=== PATIENT | female | born 1990 | race Caucasian/White ===

== ENCOUNTER 2019-09-26 16:50 | Inpatient (IN) | payer BC ==
[~2019-09-26] VITALS: Ht 157.5 cm; Wt 74.4 kg
[2019-09-26] MEDS: LR 1,000 ML IV SCH (21:30)
[2019-09-26] MEDS ORDERED: OXYTOCIN/0.9 % SODIUM CHLORIDE 1,000 ML IV SCH (21:36)
[2019-09-26] MEDS ORDERED: LR 1,000 ML IV ONE (21:36)
[2019-09-26] MEDS ORDERED: AMPICILLIN SODIUM 1 GM in NS 50 ML IV SCH (21:45)
[2019-09-26] MEDS ORDERED: TERBUTALINE SULFATE 1 MG/ML VIAL SUBCUT ONE (21:45)
[2019-09-26] MEDS ORDERED: AMPICILLIN SODIUM 2 GM in NS 100 ML IV ONE (21:45)
[2019-09-26 21:52] LABS: BASOPHILS % (AUTO) 0.3 % (0.0-2.0); EOSINOPHILS % (AUTO) 0.6 % (0.0-4.0); HEMATOCRIT 30.9 % (36-48); HEMOGLOBIN 10.5 g/dL (12.0-16.0); LYMPHOCYTES # (AUTO) 2.5 K/uL (1.0-5.5); LYMPHOCYTES % (AUTO) 30.6 % (20.5-51.5); MEAN CORPUSCULAR HEMOGLOBIN 30 pg (27-31); MEAN CORPUSCULAR HGB CONC 34 % (32-36); MEAN CORPUSCULAR VOLUME 90 fL (79.0-98.0); MONOCYTES # (AUTO) 0.8 K/uL (0.0-1.0); MONOCYTES % (AUTO) 10.3 % (1.7-9.3); NEUTROPHILS # (AUTO) 4.7 K/uL (1.8-7.7); NEUTROPHILS % (AUTO) 58.2 % (40.0-70.0); PLATELET COUNT (AUTO) 269 K/uL (130-430); RED BLOOD CELL COUNT(AUTO) 3.45 MIL/uL (4.2-6.2); WHITE BLOOD COUNT (AUTO) 8.1 K/uL (4.8-10.8)
[2019-09-26] MEDS ORDERED: FLU VACC QS2019-20 36MOS UP/PF 60 MCG/0.5 ML SYRINGE I.M. PRN (23:00)
[2019-09-26] MEDS ORDERED: MISOPROSTOL 100 MCG TABLET (CYTOTEC) VG ONE (23:15)
[2019-09-27] MEDS ORDERED: AMPICILLIN SODIUM 2 GM VIAL ONE (02:32)
[2019-09-27] MEDS: LR 1,000 ML IV SCH ×2 (03:40→09:13)
[2019-09-27] MEDS ORDERED: AMPICILLIN SODIUM 1 GM VIAL ONE (06:36)
[2019-09-27] MEDS ORDERED: ROPIVACAINE HCL/PF 0.2% 200 ML ONE (07:48)
[2019-09-27] MEDS ORDERED: fentaNYL CITRATE/PF 100 MCG/2 ML AMP ONE (07:48)
[2019-09-27] MEDS ORDERED: CALCIUM CARBONATE 500 MG/ TAB.CHEW PO PRN (09:00)
[2019-09-27] MEDS: AMPICILLIN SODIUM 1 GM in NS 50 ML IV SCH ×2 (10:30→14:30)
[2019-09-27] MEDS ORDERED: LR 500 ML IV ONE (12:27)
[2019-09-27] MEDS ORDERED: FENT2mCg/mL-ROPIVA0.2%/NS EPID 200 ML EP SCH (12:30)
[2019-09-27] MEDS ORDERED: OXYTOCIN/0.9 % SODIUM CHLORIDE 1,000 ML IV ONE (19:43)
[2019-09-27] MEDS ORDERED: ANUSOL 1 EA SUPP.RECT (PREPARATION H) RC PRN (19:45)
[2019-09-27] MEDS ORDERED: LANOLIN 7 GM OINT. TP PRN (19:45)
[2019-09-27] MEDS ORDERED: DIPH-TET-PERTUS Vaccine 0.5 ML VIAL (ADACEL) I.M. PRN (19:45)
[2019-09-27] MEDS ORDERED: HYDROCORTISONE 0.5%, 28.35 GM TOPICAL CREAM TP PRN (19:45)
[2019-09-27] MEDS ORDERED: WITCH HAZEL LEAF 1 MED.PAD MED.PAD TP PRN (19:45)
[2019-09-27] MEDS ORDERED: OXYCODONE/ACETAMINOPHEN 5-325 TABLET PO PRN (19:45)
[2019-09-27] MEDS ORDERED: SENNOSIDES/DOCUSATE SODIUM 1 TAB TABLET(SENOKOT-S) PO PRN (19:45)
[2019-09-27] MEDS ORDERED: MEASLES,MUMPS&RUBELLA VACC/PF 12500 UNIT/0.5 ML VIAL SUBQ PRN (19:45)
[2019-09-27] MEDS ORDERED: DERMOPLAST SPRAY TP PRN (19:45)
[2019-09-27] MEDS ORDERED: METHYLERGONOVINE MALEATE 0.2 MG TABLET PO PRN (19:45)
[2019-09-27] MEDS ORDERED: TEMAZEPAM 15 MG CAPSULE PO PRN (21:00)
[2019-09-27] MEDS: IBUPROFEN 600 MG TABLET PO SCH (21:13)
[2019-09-27] MEDS: DOCUSATE SODIUM 100 MG CAPSULE PO PRN (21:13)
[2019-09-28] MEDS: IBUPROFEN 600 MG TABLET PO SCH ×4 (04:57→23:56)
[2019-09-28 08:21] LABS: BASOPHILS % (AUTO) 0.2 % (0.0-2.0); EOSINOPHILS % (AUTO) 0.4 % (0.0-4.0); HEMATOCRIT 30.8 % (36-48); HEMOGLOBIN 10.1 g/dL (12.0-16.0); LYMPHOCYTES # (AUTO) 2.9 K/uL (1.0-5.5); MEAN CORPUSCULAR HEMOGLOBIN 30 pg (27-31); MEAN CORPUSCULAR HGB CONC 33 % (32-36); MEAN CORPUSCULAR VOLUME 90 fL (79.0-98.0); MONOCYTES # (AUTO) 1.1 K/uL (0.0-1.0); MONOCYTES % (AUTO) 9.5 % (1.7-9.3); NEUTROPHILS # (AUTO) 7.9 K/uL (1.8-7.7); NEUTROPHILS % (AUTO) 65.9 % (40.0-70.0); PLATELET COUNT (AUTO) 239 K/uL (130-430); RED BLOOD CELL COUNT(AUTO) 3.43 MIL/uL (4.2-6.2); RED CELL DISTRIBUTION WIDTH 14.5 % (9.0-15.0); WHITE BLOOD COUNT (AUTO) 11.9 K/uL (4.8-10.8)
[2019-09-28] MEDS: DOCUSATE SODIUM 100 MG CAPSULE PO PRN (23:57)
[2019-09-29] MEDS: IBUPROFEN 600 MG TABLET PO SCH (05:59)
[2019-09-29] MEDS: DOCUSATE SODIUM 100 MG CAPSULE PO PRN ×2 (06:12→08:22)
[2019-09-29] MEDS: OXYCODONE/ACETAMINOPHEN 5-325 TABLET PO PRN ×2 (08:22→11:04)
== END 2019-09-29 11:30 | disposition home or self-care (01) | DRG 807 ==
LOC: SPU 20:46
PROVIDERS: ADMIT Obstetrics & Gynecology; ATTEND Obstetrics & Gynecology
PROC: 10E0XZZ Delivery of Products of Conception, External Approach (ICD-10-PCS; principal; 2019-09-27)
PROC: 3E0P7VZ Introduction of Hormone into Female Reproductive, Via Natural or Artificial Opening (ICD-10-PCS; 2019-09-27)
PROC: 3E0R3BZ Introduction of Anesthetic Agent into Spinal Canal, Percutaneous Approach (ICD-10-PCS; 2019-09-27)
PROC: 00HU33Z Insertion of Infusion Device into Spinal Canal, Percutaneous Approach (ICD-10-PCS; 2019-09-27)
DX: O99.824 Streptococcus B carrier state complicating childbirth (principal); Z37.0 Single live birth; O69.81X0 Labor and delivery complicated by cord around neck, without compression, not applicable or unspecified; Z3A.39 39 weeks gestation of pregnancy
CPT/HCPCS: 36415; 81002-TC; 85025; 86592; 86886; 86900; 86901; 90715; 94760; J0290; J2590; J3010; J7120